=== PATIENT | female | born 1955 | race Caucasian/White ===

== ENCOUNTER → 2019-10-17 11:35 | Outpatient (CLI) | payer MEDICARE, OTHER, SELFPAY ==
[2019-10-18 09:37] LABS: COVID19 Sendout Not Detected (Not Detect)
== END ==
PROVIDERS: Visit Provider Physician Assistant
DX: Z01.812 Encounter for preprocedural laboratory examination (principal)
CPT/HCPCS: 87635

== ENCOUNTER 2019-10-20 08:13 | Day surgery (SDC) | payer MEDICARE, OTHER, SELFPAY ==
[2019-10-13 12:42] VITALS: BMI 23.6
[2019-10-20] VITALS (13 sets, daily range): BP systolic 95–144; BP diastolic 60–86; PULSE 60–67; RESP 9–17; TEMP 36.3–36.6; O2SAT 88–97; BMI 23.1
[2019-10-20] MEDS: LACTATED RINGERS 1,000 ML 100 ML IV ×2 (08:44→11:06)
--- NOTE | 2019-10-20 09:58 | PM.PREOP ---
Pre-operative Note COVID-19 COVID-19 status: Negative Result date/Date tested (Pos, Neg/Pending): 10/20/19 Interval Note History & Physical reviewed/Exam performed by Physician: Yes Changes to H&P: No
--- NOTE | 2019-10-20 09:59 | P.OP_ITS ---
Operative Date/Time/Diagnoses Date of procedure: 10/20/19 Time of procedure: 09:59 Pre-op diagnosis: Left great toe arthritis, pain Post-op diagnosis: same Procedure & Clinicians Procedure: Left first metatarsophalangeal joint arthrodesis Same procedure as scheduled: Yes Indications: Painful arthritis to the left great toe joint. Conservative efforts failed to alleviate her pain and she wished to have surgical intervention at this time. Surgeon: Maryann Olsen Click Yes if Unassisted: Yes Anesthesia Type: General Operative Notes Closure Type: primary Specimen(s): none sent Prosthetic devices, grafts, tissues, transplants, or devices: [place] MTP Plate, 4.0 cannulated screw, 6 2.7 screws (locking and non-locking). Estimated Blood Loss (mL): 30 Tourniquet time (min): 89 Procedure in detail: The patient was brought to the operating room and placed on the operating table in the supine position. A tourniquet was placed about the patient's left thigh. After induction of general anesthesia the foot and ankle were prepped and draped in the usual aseptic manner. The tourniquet was inflated. Incision was made over the dorsal aspect of the left 1st metatarsophalangeal joint. The incision was deepened through subcutaneous tissues being careful to identify and retract all vital neurovascular structures. All bleeders were cauterized and ligated necessary. A significant amount of degenerative exostoses were noted to the dorsal medial and lateral 1st metatarsophalangeal joint. The capsule was opened and I also noted an enlarged medial eminence of the 1st metatarsal head. A saw was used to resect the medial eminence enlargement as well as some of the more prominent areas of spurring at the 1st metatarsophalangeal joint. There is also a small joint mouse dorsally. The joint showed about 1/2 loss of the articular cartilage on the 1st metatarsal head and less than that on the phalangeal base. A guidewire was placed in the 1st metatarsal head and a reamer was used to resect the cartilage from the 1st metatarsal head and prepare the joint. The same procedure was performed to the proximal phalanx base. These guidewires were then removed. Subchondral drilling was performed to either side with the guidewire as well as some fish s caling using a small osteotome. The area was irrigated with copious amount of normal sterile saline. Temporary fixation across the joint was placed with a guidewire and this was checked under C-arm to be in appropriate alignment. A plate was chosen and any further reduction of prominences dorsally was performed with a rasp and rongeur. Using the aid of fluoroscopy, the guide wire was used as cannulation for the drill for a lag screw from the distal medial to proximal lateral 1st metatarsal phalangeal joint. Confirmed appropriate in all 3 planes, a partially threaded screw was placed and the guidewire removed. Good strength and reduction of the former joint. Plate was placed and with the aid of fluoroscopy a series of locking screws and nonlocking screws were placed across the plate and steadied the joint well. This was checked on C-arm. The area is irrigated with copious amounts normal sterile saline. The lag screw was removed and replaced with a shorter screw due to the original being a little long after the compression that it provided. The new screw was more appropriate length and purchased well. The tourniquet was deflated and prompt hyperemic response was seen to the foot. No motion was noted at the 1st MTPJ. Subcutaneous closure was performed using Vicryl and nylon was used to close the skin. A sterile lightly compressive dressing was placed on the foot and she was placed in her postoperative boot. She was transferred to the PACU with vital signs stable and vascular status intact. Complications: none Post-operative Condition: stable Disposition: PACU Plan for aftercare: Following a period of postoperative monitoring, the patient be discharged home on written and oral postoperative instructions including keeping the dressing dry and intact, avoiding ambulation on the foot, icing and elevating the foot when seated home. DVT prevention techniques have been reviewed. For the 1st postoperative visit the dressing will be changed and close to the second to third postoperative week we will likely remove the sutures. X-rays WB s/p week 4. NWB until that time then will reevaluate weight-bearing status.
[2019-10-20] MEDS: CEFAZOLIN 2 GM/100 ML FROZ.PIGGY IV (10:04)
--- NOTE | 2019-10-20 10:40 | SUR.OPER ---
PATIENT SUPINE ON OR BED, FEET AT END OF BED. ARMS ON ARM BOARDS AT 90 DEGREES. BUMP UNDER LEFT HIP. GEL UNDER NON OPERATIVE LOWER EXTREMITY.
--- NOTE | 2019-10-20 10:48 | SUR.OPER ---
POST OP SHOE PART OF DRESSING
[2019-10-20] MEDS: BUPIVACAINE 0.5% (PF) VIAL 30 ML INJ (10:52)
--- NOTE | 2019-10-20 12:54 | SUR.PHASEI ---
patient dozing, o2 sats 89% on RA. 2L NC reapplied. Sats increased to 95%.
[2019-10-20] MEDS: ONDANSETRON 4 MG/2 ML INJ IV (12:58)
--- NOTE | 2019-10-20 12:59 | SUR.PHASEI ---
Patient c/o nausea or hunger, Zofran and Queaze provided.
--- NOTE | 2019-10-20 13:13 | SUR.PHASEI ---
Patient had reported nausea improved, then c/o burning/hunger in her stomach. Cracker provided, which patient if tolerating well.
[2019-10-20] MEDS: METOCLOPRAMIDE 10 MG/2 ML INJ IV (13:19)
[2019-10-20] MEDS: CALCIUM CARBONATE 500 MG TAB 1000 MG PO (13:43)
--- NOTE | 2019-10-20 13:52 | SUR.PHASEI ---
O2 sat 88-92% RA. IS provided, instructions given. Patient able to reach 1600mls.
--- NOTE | 2019-10-20 14:04 | SUR.PHASEI ---
Patient stated the burning sensation in her stomach resolved after the Tums. Tea provided per patient request.
--- NOTE | 2019-10-20 15:09 | SUR.PHASEII ---
late entry: Incentive spirometer done while in phase 2, with pt on discharge, daughter instructed. Pt left when ready, left in stable condition, sats above 90% while in phase 2
== END 2019-10-20 15:03 | disposition home or self-care (01) ==
PROVIDERS: Referring Provider Podiatrist; Visit Provider Podiatrist
PROC: (CPT 28750; principal; 2019-10-20 09:45)
DX: M19.072 Primary osteoarthritis, left ankle and foot (principal); M20.5X2 Other deformities of toe(s) (acquired), left foot
CPT/HCPCS: 28750; J0690; J1100; J1885; J2250; J2405; J2704; J2765; J3010

== ENCOUNTER → 2022-02-16 15:12 | Outpatient (CLI) | payer MEDICARE, OTHER, SELFPAY ==
[2022-02-16 16:27] LABS: Influenza A - CEPHEID Flu A NEGATIVE (NEGATIVE); Influenza B - CEPHEID Flu B NEGATIVE (NEGATIVE)
[2022-02-16 16:34] LABS: COVID-19 CEPHEID 4-PLEX PCR Negative (Negative)
== END ==
PROVIDERS: Visit Provider Physician Assistant Medical
DX: R05.1 Acute cough (principal)
CPT/HCPCS: 0240U

== ENCOUNTER → 2022-03-04 10:20 | Outpatient (CLI) | payer MEDICARE, OTHER, SELFPAY ==
--- NOTE | 2022-03-04 10:23 | DI.RAD.S_ITS ---
PROCEDURE: XR SINUS MIN 3V INDICATIONS: sinusitis TECHNIQUE: 3 views of the sinuses were acquired. COMPARISON: None. FINDINGS: Sinuses: The visualized sinuses demonstrate no air-fluid levels or mucosal thickening. The visualized mastoids also appear clear. Bones: No suspicious bony lesions. Nasal septum is midline. IMPRESSION: Unremarkable sinus series. If there is clinical suspicion for occult sinusitis, sinus CT is recommended. Dictated by: Casandra Jacome M.D. on 03/04/2022 at 10:48 Approved by: Casandra Jacome M.D. on 03/04/2022 at 10:49
== END ==
PROVIDERS: Referring Provider Physician Assistant Medical; Visit Provider Physician Assistant Medical
DX: J32.0 Chronic maxillary sinusitis (principal)
CPT/HCPCS: 70220

== ENCOUNTER → 2023-01-15 09:44 | Outpatient (CLI) | payer MEDICARE, OTHER, SELFPAY ==
[2023-01-15 11:32] LABS: BUN Creatinine Ratio 28.2 (6-22); Blood Urea Nitrogen 20 mg/dL (7-17); Calcium 9.1 mg/dL (8.4-10.2); Carbon Dioxide 29 mmol/L (22-32); Chloride 104 mmol/L (98-107); Estimated Glomerular Filt Rate > 60 mL/min (>60); Glucose 96 mg/dL (80-110); HEMOLYSIS < 15 (0-50); Potassium 4.3 mmol/L (3.4-5.1); Sodium 138 mmol/L (137-145)
[2023-01-15 16:14] LABS: Hemoglobin A1C% w Est Avg Glu 5.9 % (4.0-6.0)
[2023-01-17 08:29] LABS: Insulin Level Total 11.1 uIU/mL (2.6-24.9)
== END ==
PROVIDERS: PCP Family Medicine; Referring Provider Family Medicine; Visit Provider Family Medicine
DX: G62.9 Polyneuropathy, unspecified (principal); Z83.3 Family history of diabetes mellitus
CPT/HCPCS: 36415; 80048; 83036; 83525

== ENCOUNTER → 2023-06-14 09:46 | Outpatient (CLI) | payer MEDICARE, OTHER, SELFPAY ==
[2023-06-14 11:37] LABS: Cholesterol 252 mg/dL (140-199); HDL Cholesterol 101 mg/dL (40-60); LDL Cholesterol Calculated 134 mg/dL (<100); Triglycerides 85 mg/dL (35-150)
== END ==
LOC: LAB 09:47
PROVIDERS: PCP Family Medicine; Referring Provider Family Medicine; Visit Provider Family Medicine
DX: Z00.00 Encounter for general adult medical examination without abnormal findings (principal); Z83.42 Family history of familial hypercholesterolemia
CPT/HCPCS: 36415; 80061

== ENCOUNTER 2025-02-20 16:26 | Emergency (ER) | payer MEDICARE, OTHER, SELFPAY ==
[2025-02-20 16:39] VITALS: BP 131/76; PULSE 77; RESP 16; TEMP 36.9; O2SAT 95; BMI 23.3
--- NOTE | 2025-02-20 16:41 | DI.RAD.S_ITS ---
PROCEDURE: XR KNEE LT 3V INDICATIONS: L knee pain TECHNIQUE: Three views of the knee were acquired. COMPARISON: None. FINDINGS: Bones: No fractures or dislocations. No suspicious bony lesions. Mild medial and patellofemoral compartment joint space loss with small osteophytes. Soft tissues: Small joint effusion. No suspicious soft tissue calcifications. IMPRESSION: No acute bony abnormality. Small joint effusion is of uncertain etiology and may be due to mild degeneration or acute injury. Dictated by: Roselia Garcia M.D. on 02/20/2025 at 17:24 Approved by: Roselia Garcia M.D. on 02/20/2025 at 17:25
[2025-02-20 19:32] VITALS: BP 160/88; PULSE 70; RESP 16; O2SAT 94
--- NOTE | 2025-02-20 19:53 | ED_ITS ---
HPI - Extremity Injury (Lower) General Chief Complaint: Extremity Injury, Lower Stated Complaint: L Knee Injury Time Seen by Provider: 02/20/25 19:52 Source: patient, RN notes reviewed and old records reviewed Mode of arrival: Wheelchair Limitations: no limitations History of Present Illness HPI Narrative: 70-year-old female history of left knee pain patient notes her dog ran full force into her knee last week while hiking. Has had a prior injury to the left knee four months prior from hiking had physical therapy and was doing very well. She states her injury last week she has had persistent pain that has been getting a little bit worse. She states it is painful to weightbear she states it does not really feel like it is going to give out. It has been worsening over time. She has noticed some swelling of the knee as well. No warmth or erythema no fevers. Patient states she can flex and extended but fully flex or full extension is uncomfortable. She notes swelling over the superior aspect and medial aspect of the knee. Patient states no numbness or tingling that is new. No other weakness that is new. She has been taking [id number] NSAIDs which are helpful but has a little bit of GI discomfort. Patient denies any drug allergies. States escitalopram as her only daily medications. She has never had any prior surgeries to her left knee. She never had any imaging of her left knee in the past. Related Data Previous Rx's ?Medication ?Instructions ?Recorded escitalopram oxalate 20 mg tablet 20 mg PO DAILY #90 t abs 04/25/24 diclofenac sodium 3 % topical gel 1 applic topical BID PRN pain #100 02/20/25 grams hydrocodone 5 mg-acetaminophen 325 1 tab PO Q6H PRN pa in #7 tabs 02/20/25 mg tablet Allergies Allergy/AdvReac Type Severity Reaction Status Date / Time No Known Drug Allergies Allergy Verified 02/20/25 16:39 Review of Systems Review of Systems ROS Unobtainable: All systems reviewed & are unremarkable except as noted in HPI and below Patient History Medical History Acute pain of left knee Excessive cerumen in right ear canal Eustachian tube dysfunction Wears glasses Foot pain Tarsal tunnel syndrome Anxiety (~2021) Headache, migraine Surgical History Anesthesia History of bilateral breast implants (~1984) S/P foot surgery, left (~2019) History of cholecystectomy (~1996) History of cataract removal with insertion of prosthetic lens (~2019) H/O breast augmentation History of surgery (~1983) Family History Father Dementia Mental health problem Mother Kidney failure Diabetes mellitus Uterine cancer Brother Diabetes mellitus Hypertension Hyperlipidemia Social History household members: spouse, family and children Smoking Status: Never smoker alcohol intake: current (1-2 per day ) substance use type: does not use and marijuana (former ) Smoking Status: Never smoker alcohol intake frequency: 0-2 drinks per day Alcohol type: wine Exam Narrative Exam Narrative: GENERAL: Alert and oriented x three, female in mild distress HEENT: Head normocephalic, atraumatic, EOMI, pupils reactive, face symmetric, moist mucous membranes NECK: Supple, full range of motion EXTREMITIES: Normal range of motion, patient has increased pain with full extension or full flexion but can go through proximally 160? range of motion, she is nontender on exam, there was no ecchymosis. She does have some swelling over the medial region and medial inferior. No bony tenderness. No warmth, erythema no lacerations or abrasions. Joint laxity testing patient has a little bit increased pain with varus, negative compression test. No clubbing or edema. Neurovascularly intact. 2+ pulse. Normal sensation throughout. NEUROLOGICAL: Cranial nerves II through XII grossly intact. Moving all extremities SKIN: Warm, dry, no petechiae, no rashes or lesions. Initial Vital Signs Initial Vital Signs: Vital Signs Temperature 98.5 F 02/20/25 16:39 Pulse Rate 77 02/20/25 16:39 Respiratory Rate 16 02/20/25 16:39 Blood Pressure 131/76 02/20/25 16:39 Pulse Oximetry 95 02/20/25 16:39 Oxygen Delivery Method Room Air 02/20/25 16:39 Course Orders Ordered: ED Orders 02/20/25 16:41 XR knee LT 3V Stat Vital Signs Vital signs: Vital Signs - 8 hr 02/20/25 16:39 02/20/25 19:32 02/20/25 20:43 Temperature 98.5 F Pulse Rate 77 70 78 Respiratory Rate 16 16 18 Blood Pressure 131/76 160/88 H 163/74 H Pulse Oximetry 95 94 96 Oxygen Delivery Method Room Air Room Air Room Air MDM - Extremity Injury (Lower) MDM Narrative Medical decision making narrative: Left knee x-ray, small joint effusion of uncertain etiology maybe due to mild degenerative or acute injury. Discussed with the patient. Plan for knee immobilizer, crutches. Weightbear as tolerated. Patient to follow up with primary care or orthopedic surgery as she has had 2 injuries to her knee. We will give a short course of narcotic pain medication. Patient finds NSAIDs very helpful but they upset her stomach we will give a prescription for topical NSAID although discussed insurance may not cover it. Discharge Plan Departure Patient Disposition: Home Clinical Impression: Injury of knee, left Instructions: DI for Knee Pain Activity Restrictions/Additional Instructions: Follow up with primary care or orthopedic surgery. Contacts included below. You can take [place] 1-2 tablets every 6 hours as needed for pain you can take this with NSAIDs if needed. This medication can make you sleepy do not drive, perform hazardous activities or make any major decisions while taking it. This medication will make you constipated please take a stool softener once to twice daily until stools are soft and regular. There was a topical NSAID that you can use. Applied to the affected area. Prescription sent to [facility] in [place]. Please return if you have fevers, new warmth, redness, rapidly worsening swelling, new numbness, weakness or loss of sensation or other new or concerning changes. Prescriptions: New hydrocodone-acetaminophen 5-325 mg tablet 1 tab PO Q6H PRN (Reason: pain) Qty: 7 0RF diclofenac sodium 3 % gel 1 applic topical BID PRN (Reason: pain) Qty: 100 0RF No Action escitalopram oxalate 20 mg tablet 20 mg PO DAILY Qty: 90 3RF Referrals: Princess Kaur DO [Primary Care Provider, Medical] Magui Porter DO [Physician, Orthopedic Surgery] Stand Alone Forms: Patient Portal/API
[2025-02-20 20:43] VITALS: BP 163/74; PULSE 78; RESP 18; O2SAT 96
== END 2025-02-20 20:45 | disposition home or self-care (01) ==
PROVIDERS: Emergency Provider Emergency Medicine; PCP Family Medicine
DX: S89.92XA Unspecified injury of left lower leg, initial encounter (principal); X58.XXXA Exposure to other specified factors, initial encounter
CPT/HCPCS: 73562; 99283

== ENCOUNTER → 2025-02-28 19:52 | Outpatient (CLI) | payer MEDICARE, OTHER, SELFPAY ==
--- NOTE | 2025-02-28 19:55 | DI.MRI.S_ITS ---
PROCEDURE: MR KNEE LT WO CON INDICATIONS: left knee injury and pain TECHNIQUE: Noncontrast sagittal PD fast spin echo and T2 fast spin echo with fat saturation, sagittal 3-D FLASH with fat saturation; coronal T1 spin echo and PD fast spin echo with fat saturation, and axial PD fast spin echo with fat saturation through the knee. COMPARISON: [facility], CR, XR KNEE LT 3V, 02/20/2025, 16:58. FINDINGS: Image quality: Diagnostic. Menisci: Multidirectional degenerative tear of the medial meniscus with vertical free edge and horizontal components in the central to posterior meniscal body, free edge vertical tear component of the posterior horn root junction. This results in mild extrusion of the meniscus. Lateral meniscal body linear increased signal of the free edge within the central body is seen on a single image and is equivocal for a incomplete free edge tear. Ligaments: The anterior and posterior cruciate ligaments are intact. Mild sprain versus stress related edema of the MCL. No high-grade tear. The fibular collateral ligament is intact. Mild social tendinosis of popliteus with fluid tracking in in the popliteal hiatus and along the tendon sheath. Extensor Mechanism: Quadriceps tendon is intact. The patellar tendon is intact. The patellar retinacula are intact. Osseous Structures: There is no fracture or dislocation. No suspicious marrow replacing process. Small knee joint effusion. Hoffa's fat pad is unremarkable. Articular Cartilage: Patellofemoral compartment: Severe grade 3-4 articular cartilage thinning and fraying of the medial patellar facet with full thickness fraying of the lateral patellar facet. Superficial thinning and fraying of the trochlear articular cartilage. Medial compartment: Deep articular cartilage thinning of the peripheral tibial plateau with partial thickness thinning and fraying of the mesial condylar articular cartilage. Lateral compartment: Hypointense articular cartilage within the tibial plateau. Superficial thinning and fraying. No full-thickness defect in the lateral compartment. Other: The visualized muscles and tendons appear normal for age. No Rivero's cyst. A multi septated ganglion cyst along the deep mild fascial margin of the popliteus measures 10 x 20 mm. Normal neurovascular signal. Nonspecific anterior knee subcutaneous fat edema. IMPRESSION: 1. Medial meniscus multidirectional degenerative tearing which extends to the posterior horn root junction. 2. Lateral meniscal body free edge linear increased signal on a single image is equivocal for tear. 3. 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 4. Mild grade 1, sprain of the MCL. Dictated by: Jeff Marie M.D. on 03/02/2025 at 8:08 Approved by: Jfef Marie M.D. on 03/02/2025 at 8:16
== END ==
LOC: MRI 19:54
PROVIDERS: PCP Family Medicine; Referring Provider Family Medicine; Visit Provider Family Medicine
DX: M23.222 Derangement of posterior horn of medial meniscus due to old tear or injury, left knee (principal); M23.201 Derangement of unspecified lateral meniscus due to old tear or injury, left knee; S83.412A Sprain of medial collateral ligament of left knee, initial encounter; M94.262 Chondromalacia, left knee; M25.462 Effusion, left knee; M67.462 Ganglion, left knee; M25.562 Pain in left knee
CPT/HCPCS: 73721